=== PATIENT | female | born 1990 | race African-American/Black ===

== ENCOUNTER 2019-03-02 22:43 | Emergency (ER) | payer SELFPAY ==
[~2019-03-02] VITALS: Wt 53.3 kg
[2019-03-02 22:50] VITALS: BP 116/71; PULSE 66; RESP 20
--- NOTE | 2019-03-03 00:30 | ERD ---
ER Documentation Chief Complaint Chief Complaint dysuria x1day HPI This is a 28-year-old female who presents emergency department with complaints of dysuria. She is together with her 48-year-old boyfriend who is also being seen by myself. Emergency department for STD symptoms. LMP: Stated that he was couple of days ago. M4. Denies headache, head injury, loss of consciousness, dizziness, neck pain, neck stiffness, throat pain, difficulty swallowing, difficulty breathing lying flat, shoulder pain, chest pain, back pain, abdominal pain, nausea, vomiting, consti pation, diarrhea, vaginal lesions, or possibility being , loss of bowel and bladder control, trauma, injury, falls, difficulty walking due to pain, numbness or tingling sensation, calf pain, recent travel, recent major surgery in the last 3 weeks, calf pain, recent long travel, recent exposure to any illness, recent antibiotic use in the last 3 months, fever, chills, seizures. Past medical history: Surgical history: Social: Denies smoking, use of alcoholic beverages, use of illegal drugs. ROS All systems reviewed and are negative except as per history of present illness. Medications Home Meds Active Scripts Cephalexin* (Keflex*) 500 Mg Capsule, 500 MG PO TID for 7 Days, CAP Prov:PASILABAN,KLAR F 03/03/19 Ibuprofen* (Motrin*) 600 Mg Tab, 600 MG PO Q6H PRN for PAIN AND OR ELEVATED TEMP, #30 TAB Prov:PASILABAN,KLAR F 03/03/19 Phenazopyridine Hcl* (Pyridium*) 100 Mg Tab, 100 MG PO TID PRN for URINARY PAIN, #8 TAB Prov:PASILABAN,KLAR F 03/03/19 Allergies Allergies: Coded Allergies: No Known Allergy (Unverified , 03/03/19) PMhx/Soc Medical and Surgical Hx: pt denies Medical Hx, pt denies Surgical Hx Hx Alcohol Use: No Hx Substance Use: No Hx Tobacco Use: No Smoking Status: Never smoker Physical Exam Vitals Vital Signs Date Temp Pulse Resp B/P (MAP) Pulse Ox O2 O2 Flow FiO2 Time Delivery Rate 03/02/19 97.0 66 20 116/71 99 22:50 (86) Physical Exam Const: No acute distress Head: Atraumatic Eyes: Normal Conjunctiva ENT: Normal External Ears, Nose and Mouth. Neck: Full range of motion. No meningismus. Resp: Clear to auscultation bilaterally Cardio: Regular rate and rhythm, no murmurs Abd: Soft, non tender, non distended. Normal bowel sounds. Negative Gibbs sign. Negative Morning Sun sign (heel jar test). Negative psoas sign. Negative Rovsing sign. No CVA tenderness. Able to jump 10 times without developing lower abdominal pain. Skin: No petechiae or rashes. Color appears normal for ethnicity. No skin tenting. No signs of dehydration. Back: No midline or flank tenderness Ext: No cyanosis, or edema Neur: Awake and alert. No neurological deficits.. Psych: Normal Mood and Affect Results 24 hrs Laboratory Tests Test 03/03/19 00:33 Urine Color YELLOW Urine Clarity SLIGHTLY CLOUDY Urine pH 5.0 Urine Specific Banks 1.017 Urine Ketones NEGATIVE mg/dL Urine Nitrite POSITIVE mg/dL Urine Bilirubin NEGATIVE mg/dL Urine Urobilinogen NEGATIVE mg/dL Urine Leukocyte Esterase NEGATIVE Gurmeet/ul Urine Microscopic RBC 2 /HPF Urine Microscopic WBC 8 /HPF Urine Squamous Epithelial Cells FEW /HPF Urine Bacteria FEW /HPF Urine Mucus MODERATE /HPF Urine Hemoglobin NEGATIVE mg/dL Urine Glucose NEGATIVE mg/dL Urine Total Protein NEGATIVE mg/dl Urine Test NEGATIVE Chlamydia trachomatis RNA (TMA) NOT DETECTED Chlamydia/GC Comment SEE NOTE Neisseria gonorrhoeae RNA (TMA) NOT DETECTED Current Medications Medications Dose Sig/Rosalino Start Time Status Last (Trade) Ordered Route PRN Stop Time Admin Dose Reason Admin Lidocaine 20 ml ONCE ONCE 03/03/19 DC 03/03/19 (Xylocaine SC 01:30 01:49 1% (Mdv) 20 03/03/19 01:31 ml) Ceftriaxone 250 mg ONCE ONCE 03/03/19 DC 03/03/19 Sodium IM 01:30 01:49 (Rocephin) 03/03/19 01:31 1,000 mg ONCE ONCE 03/03/19 DC 03/03/19 Azithromycin PO 01:30 01:49 (Zithromax) 03/03/19 01:31 Procedures/MDM Diagnostic tests: hCG urine: Negative. Urinalysis: Positive for nitrite. WBCs 8. Culture urine: Sent. Gonorrhea and Chlamydia: Sent. Treatment: Ceftriaxone. Azithromycin. Re-evaluation: Denies abdominal pain. Differential diagnosis I have low suspicion for sepsis, herpes, PID. Final diagnosis: STD symptoms. UTI. Prescription: Keflex. Motrin. Pyridium. Follow-up with PCP in the next 24-48 hours. Come back here in the emergency department for any new symptoms or any worsening symptoms. All questions and concerns were answered. Patient and family members verbalized understanding and agreed with plan of care. Hemodynamically stable on discharge. Departure Diagnosis: Primary Impression: Dysuria Additional Impressions: UTI (urinary tract infection) STD (female) Condition: Stable Additional Instructions: Follow-up with PCP in the next 24-48 hours. Come back here in the emergency d epartment for any new symptoms or any worsening symptoms. OSMANI BAIRES March 03, 2019 00:30
[2019-03-03] MEDS ORDERED: PHEN-537 PO (01:10)
[2019-03-03] MEDS ORDERED: IBUP-1542 PO (01:10)
[2019-03-03] MEDS ORDERED: CEPH-443 PO (01:10)
[2019-03-03] MEDS ORDERED: LIDOCAINE 1% (MDV) 20 ML INJ SC ONE (01:30)
[2019-03-03] MEDS ORDERED: AZITHROMYCIN 500 MG TAB PO ONE (01:30)
[2019-03-03] MEDS ORDERED: CEFTRIAXONE 250 MG INJ IM ONE (01:30)
== END 2019-03-03 02:06 | disposition home or self-care (01) ==
LOC: FTE 22:43
DX: N39.0 Urinary tract infection, site not specified (principal); A64 Unspecified sexually transmitted disease
CPT/HCPCS: 81001; 84703; 87086; 87591; 96372; 99284; J0696

== ENCOUNTER 2019-04-07 23:01 | Emergency (ER) | payer MEDICAID ==
[~2019-04-07] VITALS: Ht 167.6 cm; Wt 52.8 kg
[~2019-04-07 23:01] MED LIST: CEPH-443 PO; IBUP-1542 PO; PHEN-537 PO
[2019-04-07 23:10] VITALS: BP 127/73; PULSE 82; RESP 16; Ht 167.6 cm; Wt 52.8 kg
--- NOTE | 2019-04-08 01:29 | ERD ---
ER Documentation Chief Complaint Chief Complaint vaginal discharge x 3 days HPI Patient is a 28-year-old female who presents the ER for concerns of vaginal discharge for x1 week. Patient describes the discharge to be "fishy smelling". Patient denies previous history of BV or yeast infection patient denies fevers o r chills. Patient denies any pelvic pain. Patient denies any nausea or vomiting. She was tested for gonorrhea and chlamydia 1 month ago and results were normal. Patient's boyfriend is also being seen today for STD testing. ROS All systems reviewed and are negative except as per history of present illness. Medications Home Meds Active Scripts Cephalexin* (Keflex*) 500 Mg Capsule, 500 MG PO TID for 7 Days, CAP Prov:PASILABAN,KLAR F 03/03/19 Ibuprofen* (Motrin*) 600 Mg Tab, 600 MG PO Q6H PRN for PAIN AND OR ELEVATED TEMP, #30 TAB Prov:PASILABAN,KLAR F 03/03/19 Phenazopyridine Hcl* (Pyridium*) 100 Mg Tab, 100 MG PO TID PRN for URINARY PAIN, #8 TAB Prov:PASILABAN,KLAR F 03/03/19 Allergies Allergies: Coded Allergies: No Known Allergy (Unverified , 03/03/19) PMhx/Soc Medical and Surgical Hx: pt denies Medical Hx, pt denies Surgical Hx Hx Alcohol Use: No Hx Substance Use: No Hx Tobacco Use: No Smoking Status: Never smoker FmHx Family History: No diabetes Physical Exam Vitals Vital Signs Date Temp Pulse Resp B/P (MAP) Pulse Ox O2 O2 Flow FiO2 Time Delivery Rate 04/07/19 98.5 82 16 127/73 100 23:10 (91) Physical Exam GENERAL: Well-developed, well-nourished female. Appears in no acute distress. HEAD: Normocephalic, atraumatic. EYES: Pupils are equally reactive bilaterally. EOMs grossly intact. No conjunctival erythema. NECK: Supple. No meningismus. Normal range of motion of the neck. LUNG: Clear to auscultation bilaterally. No rhonchi, wheezing, rales or coarse breath sounds. HEART: Regular rate and rhythm. No murmurs, rubs or gallops. ABDOMEN: Soft, nontender, and nondistended. Positive bowel sounds in all four quadrants. No rebound tenderness, no guarding. (-) McBurney's point tenderness. No CVA tenderness. FEMALE GENITALIA: Exam was completed with a lead shipper present (GARETH Barrientos). Normal external female genitalia. Normal vaginal mucosal without lesions. Cervix visualized, normal in appearance without any erythema.White thick discharge noted within the vaginal vault. EXTREMITIES: Equal pulses bilaterally. No peripheral clubbing, cyanosis or edema. No unilateral leg swelling. NEUROLOGIC: Alert and oriented. Moving all four extremities without any difficulty. Normal speech. Steady gait. SKIN: Normal color. Warm and dry. No rashes or lesions. Results 24 hrs Laboratory Tests Test 04/08/19 01:18 04/08/19 01:19 POC Beta HCG, Qualitative NEGATIVE Bedside Urine pH (LAB) 5.5 Bedside Urine Protein (LAB) Negative Bedside Urine Glucose (UA) Negative Bedside Urine Ketones (LAB) Negative Bedside Urine Blood Negative Bedside Urine Nitrite (LAB) Negative Bedside Urine Leukocyte Esterase (L Negative Current Medications Medications Dose Sig/Rosalino Start Time Status Last (Trade) Ordered Route PRN Stop Time Admin Dose Reason Admin Ceftriaxone 250 mg ONCE ONCE 04/08/19 DC 04/08/19 Sodium IM 01:30 01:25 (Rocephin) 04/08/19 01:31 1,000 mg ONCE ONCE 04/08/19 DC 04/08/19 Azithromycin PO 01:30 01:25 (Zithromax) 04/08/19 01:31 Procedures/MDM MEDICAL DECISION MAKING: This is a 28-year-old female presents the ER for concerns of vaginal discharge x1 week. Vital signs were reviewed. Patient was afebrile. Urine test was anemia. UA showed no signs of acute infection or hematuria. Urine will be sent for gonorrhea chlamydia testing. Patient was treated for chlamydia per her request. Wet mount was obtained and showed no clue cells, no trichomoniasis, no yeast. At this time the patient presentation was consistent vaginal discharge. Low suspicion for trichomoniasis, yeast infection, BV, ectopic , ovarian torsion, PID, tubo-ovarian abscess, UTI, pyelonephritis, appendicitis. Patient advised to follow-up with RESIDENT CARE MANAGER RN and/or [facility] additional STD testing. DISCHARGE: At this time, patient is stable for discharge and outpatient management. I have instructed the patient to follow-up with his/her primary care physician in 1-2 days. I have discussed with the patient the possibility of needing to see a specialist for further workup and diagnostic studies if the pain persists. I have instructed the patient to promptly return to the ER at any time for any new or worsening symptoms including increased pain, nausea, vomiting, vaginal bleeding, weakness or fever. The patient and/or family expressed understanding of and agreement with this plan. All questions were answered. Home care instructions were provided. Disclaimer: Inadvertent spelling and grammatical errors are likely due to EHR/dictation software use and do not reflect on the overall quality of patient care. Also, please note that the electronic time recorded on this note does not necessarily reflect the actual time of the patient encounter. Departure Diagnosis: Primary Impression: Vaginal discharge Condition: Fair Patient Instructions: Understanding STDs Referrals: [facility] YOU HAVE RECEIVED A MEDICAL SCREENING EXAM AND THE RESULTS INDICATE THAT YOU DO NOT HAVE A CONDITION THAT REQUIRES URGENT TREATMENT IN THE EMERGENCY DEPARTMENT. FURTHER EVALUATION AND TREATMENT OF YOUR CONDITION CAN WAIT UNTIL YOU ARE SEEN IN YOUR DOCTORS OFFICE WITHIN THE NEXT 1-2 DAYS. IT IS YOUR RESPONSIBILITY TO MAKE AN APPOINTMENT FOR FOLOW-UP CARE. IF YOU HAVE A PRIMARY DOCTOR --you should call your primary doctor and schedule an appointment IF YOU DO NOT HAVE A PRIMARY DOCTOR YOU CAN CALL OUR PHYSICIAN REFERRAL HOTLINE AT IF YOU CAN NOT AFFORD TO SEE A PHYSICIAN YOU CAN CHOSE FROM THE FOLLOWING [facility] [address] [facility]. [facility] [address] [facility]. [facility] [address] [facility] [address] [facility] [facility] [address] [facility]. [facility]. [address] [facility]. [facility] YOU HAVE RECEIVED A MEDICAL SCREENING EXAM AND THE RESULTS INDICATE THAT YOU DO NOT HAVE A CONDITION THAT REQUIRES URGENT TREATMENT IN THE EMERGENCY DEPARTMENT. FURTHER EVALUATION AND TREATMENT OF YOUR CONDITION CAN WAIT UNTIL YOU ARE SEEN IN YOUR DOCTORS OFFICE WITHIN THE NEXT 1-2 DAYS. IT IS YOUR RESPONSIBILITY TO MAKE AN APPOINTMENT FOR FOLOW-UP CARE. IF YOU HAVE A PRIMARY DOCTOR --you should call your primary doctor and schedule and appointment IF YOU DO NOT HAVE A PRIMARY DOCTOR YOU CAN CALL OUR PHYSICIAN REFERRAL HOTLINE AT . IF YOU CAN NOT AFFORD TO SEE A PHYSICIAN YOU CAN CHOSE FROM THE FOLLOWING [facility] INSTITUTIONS: [facility] [address] [place] [address] [facility] [address] [place] [address] [facility] [address] [place] [address] RESIDENT CARE MANAGER [place] [address] [facility] [address] [place], [place] [id number] OFFICE FAX , [facility] [address] [place], [place] [id number] [address] [facility] [address] [place] [address] [address]CKENNA [facility] [address] [facility], [facility] [address] [address] [address] [place] [address] [facility] [address] [place] [address] [address] [place] [address] - JONAH CLARK [address], [facility] [id number] [address] [address] [facility]. [address], [facility] [address] [address] [place], [place] [id number] [facility] Hours: 8:00 am - 5:00 pm Additional Instructions: Call your primary care doctor TOMORROW for an appointment during the next 1-2 days.See the doctor sooner or return here if your condition worsens before your appointment time. TARA MARKS PA-C Apr 08, 2019 01:29
[2019-04-08] MEDS ORDERED: AZITHROMYCIN 500 MG TAB PO ONE (01:30)
[2019-04-08] MEDS ORDERED: CEFTRIAXONE 250 MG INJ IM ONE (01:30)
== END 2019-04-08 02:34 | disposition home or self-care (01) ==
LOC: FTE 23:01
DX: N89.8 Other specified noninflammatory disorders of vagina (principal)
CPT/HCPCS: 81003; 81025; 87210; 87591; 96372; J0696; Z7502; Z7610